=== PATIENT | female | born 1965 | race Caucasian/White ===

== ENCOUNTER 2016-12-13 10:49 | Outpatient (CLI) | payer MEDICARE, MEDICAID ==
--- NOTE | 2016-12-13 12:12 | RAD ---
LUMBAR SPINE 3 VIEWS: Date: 12/13/16 HISTORY: Low back pain. FINDINGS/IMPRESSION: There is minimal levoscoliosis of the lumbar spine. The vertebral body heights are maintained. No co mpression fracture or bony destruction is seen. There is minimal anterolisthesis of L5 over S1. POS: SAMANTHA
== END 2016-12-13 10:50 | disposition home or self-care (01) ==
LOC: MADRAD 10:49
PROVIDERS: ATTEND Physician Assistant
DX: M54.9 Dorsalgia, unspecified (principal)
CPT/HCPCS: 72100

== ENCOUNTER 2017-03-09 09:01 | Outpatient (CLI) | payer MEDICARE ==
[2017-03-09] MEDS ORDERED: Iopamidol 370 76% 100 ML VIAL ONE (11:05)
--- NOTE | 2017-03-09 11:31 | CT ---
CT OF THE THORAX WITH IV CONTRAST: COMPARISON: CTA of the thorax dated 08/30/16. INDICATION: History of pulmonary nodule; followup exam. FINDINGS: The 5 mm pulmonary nodule within the right upper lobe seen on the comparison examination is no longe r identified. The tiny 3 mm pulmonary nodule within the right middle lobe has decreased in prominen ce. No new pulmonary nodule is identified. No pathologically enlarged lymph nodes are noted. Ther e is decrease in the amount of pericardial fluid present. There is a small hiatal hernia. There are tiny hypodensities within the right hepatic lobe, too sma ll to characterize. Statistically, these are likely reflective of cysts. There is thoracolumbar sc oliosis without evidence of acute osseous abnormality. IMPRESSION: 1. Interval resolution of the 5 mm pulmonary nodule seen within the right upper lobe. 2. The small pulmonary nodule within the right middle lobe has also decreased in prominence. This is likely benign. 3. No additional followup recommended. 4. Decrease in size of small pericardial effusion. 5. Hypodensities within the right hepatic lobe are too small to characterize but statistically are likely reflective of cysts. 6. Small hiatal hernia. POS: SAMANTHA
== END 2017-03-09 09:02 | disposition home or self-care (01) ==
LOC: MADCT 09:01
PROVIDERS: ATTEND Physician Assistant
DX: R93.8 Abnormal findings on diagnostic imaging of other specified body structures (principal); R79.89 Other specified abnormal findings of blood chemistry; R91.1 Solitary pulmonary nodule; K44.9 Diaphragmatic hernia without obstruction or gangrene; K76.9 Liver disease, unspecified
CPT/HCPCS: 36415; 71260; 82565

== ENCOUNTER 2018-12-18 11:09 | Outpatient (CLI) | payer MEDICARE, MEDICAID ==
--- NOTE | 2018-12-18 14:10 | RAD ---
THREE VIEWS LUMBAR SPINE: Date: 12-18-18 Comparison: 12-13-16 History: Rheumatoid arthritis, right lower extremity radiculopathy. FINDINGS: There is stable mild levoscoliosis of the upper lumbar spine. Lateral examination demonstrates anterolisthesis of L5 on S1 measuring approximately 4 mm, similar wh en compared to the prior exam. There is facet hypertrophy at L4-5 and L5-S1. No acute fracture is sue dent. IMPRESSION: Bilateral facet hypertrophy at L4-5 and L5-S1 with mild stable anterolisthesis of L5 on S1. It is dif ficult to evaluate for associated pars defects at L5 on this examination. Oblique imaging and/or CT m ay be beneficial to evaluate the lumbosacral junction. POS: SAMANTHA
== END 2018-12-18 11:10 | disposition home or self-care (01) ==
LOC: MADRAD 11:09
PROVIDERS: ATTEND Physician Assistant
DX: M06.9 Rheumatoid arthritis, unspecified (principal); M47.816 Spondylosis without myelopathy or radiculopathy, lumbar region; M47.817 Spondylosis without myelopathy or radiculopathy, lumbosacral region; M43.17 Spondylolisthesis, lumbosacral region
CPT/HCPCS: 72100

== ENCOUNTER 2020-10-03 16:33 | Emergency (ER) | payer MEDICARE, MEDICAID ==
--- NOTE | 2020-10-03 17:13 | RAD ---
Exam:Left knee 4 views HISTORY: Pain. COMPARISON: None FINDINGS: Suprapatellar effusion. Mild loss of the medial and patellofemoral compartment joint space height. No fracture. IMPRESSION: Joint effusion. Mild bicompartmental degenerative change. Additional evaluation with none mergent MRI may be beneficial.
== END 2020-10-03 18:15 | disposition home or self-care (01) ==
LOC: MADERS 16:33
DX: M06.9 Rheumatoid arthritis, unspecified (principal); M35.00 Sjogren syndrome, unspecified; E03.9 Hypothyroidism, unspecified; K21.9 Gastro-esophageal reflux disease without esophagitis; D51.0 Vitamin B12 deficiency anemia due to intrinsic factor deficiency; E78.5 Hyperlipidemia, unspecified; I10 Essential (primary) hypertension; F17.210 Nicotine dependence, cigarettes, uncomplicated; Z79.899 Other long term (current) drug therapy
CPT/HCPCS: 96372; J1040